=== PATIENT | female | born 1945 | race Caucasian/White ===

== ENCOUNTER 2016-06-17 09:28 | Emergency (ER) | payer OTHER ==
[2016-06-17 09:32] VITALS: BMI 39.4
--- NOTE | 2016-06-17 10:04 | PDOC ---
History of Present Illness <Liseth Christine - Last Filed: 06/17/16 12:44> - General History Source: Patient Exam Limitations: No Limitations - History of Present Illness Travel History: No Initial Comments: 06/17/16 10:09 71y F hx of htn, hypothyroidism presents with abd pain. The pt states she has been having intermittent RUQ pain that radiates to the R flank, worse at night, described as burning and associated with nausea. no associated fever/chills, worsening on exertion, vomiting, chest pain, diaphoresis, diarrhea, dysuria, hematuria. pt describes having occasional pain in the same region in the past, she takes otc meds with resolution but has never had this evaluated by her doctor before. surgical hx: s/p appendectomy, cholecystectomy pmd: kelvin guido <Jasen Salinas - Last Filed: 06/17/16 12:58> - General Chief Complaint: Pain, Acute Stated Complaint: BACK PAIN Time Seen by Provider: 06/17/16 09:36 Past History <Liseth Christine - Last Filed: 06/17/16 12:44> - Past Medical History GI Disorders: Yes (GASTRITIS) HTN: Yes Thyroid Disease: Yes - Surgical History Appendectomy: Yes Cholecystectomy: Yes - Psycho/Social/Smoking Cessation Hx Anxiety: No Suicidal Ideation: No Smoking History: Never smoked Have you smoked in the past 12 months: No Information on smoking cessation initiated: No Hx Alcohol Use: No Drug/Substance Use Hx: No Substance Use Type: None <Jasen Salinas - Last Filed: 06/17/16 12:58> - Past Medical History Allergies/Adverse Reactions: Allergies Allergy/AdvReac Type Severity Reaction Status Date / Time No Known Drug Allergies Allergy Verified 06/17/16 09:31 Home Medications: Ambulatory Orders Amlodipine Besylate [Norvasc -] 2.5 mg PO DAILY 06/17/16 Aspirin [ASA -] 81 mg PO DAILY 06/17/16 Duloxetine HCl 30 mg PO DAILY 06/17/16 Levothyroxine [Synthroid -] 112 mcg PO DAILY 06/17/16 Losartan/Hydrochlorothiazide [Losartan-Hctz 100-25 mg Tab] 1 each PO DAILY 06/17 Pentosan Polysulfate Sodium [Elmiron] 100 mg PO TID 03/24/17 Review of Systems - Review of Systems Able to Perform ROS?: Yes Comments:: 06/17/16 10:13 Constitutional - no reported Fever, Chills, weakness, HEENT: no reported vision changes, sore throat Respiratory: no reported cough, sob, hemoptysis Cardiac: no reported chest pain, palpitations, light headedness, leg swelling Abd/GI: +abd pain, nausea, no reported vomiting, blood per rectum, melena, diarrhea : no reported dysuria, frequency, discharge Musculskelatal - no reported back pain, joint swelling skin - no reported bruising, erythema, rash neurological: no reported headache, numbness, focal weakness, tingling, ataxia, weakness hematologic: no reported anemia, easy bruising, easy bleeding <Jasen Salinas - Last Filed: 06/17/16 12:58> *Physical Exam - Vital Signs Last Vital Signs Temp Pulse Resp BP Pulse Ox 98.2 F 74 17 142/93 96 06/17/16 09:29 06/17/16 09:29 06/17/16 09:29 06/17/16 09:29 06/17/16 09:29 <Liseth Christine - Last Filed: 06/17/16 12:44> - Vital Signs Last Vital Signs Temp Pulse Resp BP Pulse Ox 98.2 F 74 17 142/93 96 06/17/16 09:29 06/17/16 09:29 06/17/16 09:29 06/17/16 09:29 06/17/16 09:29 - Physical Exam Comments: 06/17/16 10:14 GENERAL: The patient is awake, alert, and fully oriented, Nontoxic - in no acute distress. HEAD: Normocephalic, atraumatic. EYES: extraocular movements intact, sclera anicteric, conjunctiva clear. ENT: Normal voice, Moist mucous membranes. NECK: Normal range of motion, supple LUNGS: Breath sounds equal, clear to auscultation bilaterally. No wheezes, no rhonchi, no rales. HEART: Regular rate and rhythm, normal S1 and S2 without murmur, rub or gallop. ABDOMEN: mild R sided abdominal pain, Soft, normoactive bowel sounds. No guarding, no rebound. . No CVA tenderness EXTREMITIES: Normal range of motion, no edema. No clubbing or cyanosis. No cords, erythema, or tenderness. NEUROLOGICAL: No facial assymetry, Normal speech, moving all 4 extermities spontaneously and symmetrically PSYCH: Normal mood, normal affect. SKIN: Warm, Dry, normal turgor, <RitaJasen - Last Filed: 06/17/16 12:58> Heart Score/ECG Review - ECG Impressions Comment:: 06/17/16 11:44 Twelve-lead EKG was performed and reviewed by me. There is normal sinus rhythm with a normal rate. rate of 65 nonspecific t wave abnormality <RitaJasen saravia - Last Filed: 06/17/16 12:58> ED Treatment Course - LABORATORY CBC & Chemistry Diagram: 06/17/16 10:08 06/17/16 10:08 - ADDITIONAL ORDERS Additional order review: Laboratory Results 06/17/16 06/17/16 06/17/16 10:09 10:09 10:08 Sodium 137 Potassium 3.2 L Chloride 98 Carbon Dioxide 27 Anion Gap 12 BUN 10 Creatinine 0.7 Creat Clearance w eGFR > 60 Random Glucose 119 H Calcium 8.7 Total Bilirubin 0.6 AST 22 D ALT 30 D Alkaline Phosphatase 76 Total Protein 7.8 Albumin 3.9 Lipase 133 Urine Color Ltyellow Urine Appearance Clear Urine pH 7.0 Ur Specific [place] 1.013 Urine Protein Negative Urine Glucose (UA) Negative Urine Ketones Negative Urine Blood Negative Urine Nitrite Negative Urine Bilirubin Negative Urine Urobilinogen Negative Ur Leukocyte Esterase 3+ H D Urine RBC 1 Urine WBC 17 Ur Epithelial Cells Rare Urine Bacteria Rare Urine Mucus Rare 06/17/16 10:08 RBC 4.61 MCV 82.7 MCHC 33.3 RDW 14.7 D MPV 8.4 Neutrophils % 59.4 Lymphocytes % 28.8 Monocytes % 7.9 Eosinophils % 2.6 Basophils % 1.3 - RADIOLOGY Radiograph Interpretation: 06/17/16 12:45 EXAM: US Abdomen INTERPRETED BY: Dr. Fung REVIEWED BY: Dr. Salinas IMPRESSION: Hepatomegaly and diffuse fatty infiltration of the liver. - Medications Given in the ED: ED Medications Discontinued Medications Generic Name Dose Route Start Last Admin Trade Name Freq PRN Reason Stop Dose Admin Pantoprazole Sodium 40 mg/ 100 mls @ 200 mls/hr 06/17/16 10:08 06/17/16 10:31 Sodium Chloride IVPB 06/17/16 10:37 200 mls/hr ONCE ONE Administration Ketorolac Tromethamine 15 mg 06/17/16 10:08 06/17/16 10:31 Toradol Injection - IVPUSH 06/17/16 10:09 15 mg ONCE ONE Administration Ondansetron HCl 4 mg 06/17/16 10:08 06/17/16 10:31 Zofran Injection IVPB 06/17/16 10:09 4 mg ONCE ONE Administration <Liseth Christine - Last Filed: 06/17/16 12:44> - LABORATORY CBC & Chemistry Diagram: 06/17/16 10:08 06/17/16 10:08 <Jasen Salinas - Last Filed: 06/17/16 12:58> Medical Decision Making - Medical Decision Making 06/17/16 10:15 71y F hx of htn, hypothyroidism presents with RUQ pain that is burning in nature radiating to the R flank with nausea w/o vomiting, fever/chills, cp, diahoreis on exam pt abd noted for mild R sided abd tenderness consider possible cholelithiasis however pt is s/p cholecystecomy - ?choledocholiithiasis consider kidney stones will give pt some toradol, antiemetic will obtain blood work, ua if UA+hematuria --> joseph obtain ct, if neg will start with US 06/17/16 12:52 pts labs reviewed K low - will replete with k-dur pts UA shows +wbcs, without bacteruria - however the pts symptoms are atypical of uti - without dysurya, frequency and bacteria will defer abx. will havept fu with PMD and gastroenterology. The pts abdomen is nontender on repeat exam and the pt states she is feeling significantly improved. suspect possible gerd/gastritis return precatuions were discussed I discussed the physical exam findings, ancillary test results and final diagnoses with the patient. I answered all of the patient's questions. The patient was satisfied with the care received and felt comfortable with the discharge plan and treatment plan. The patient will call their primary care physician within 24 hours to arrange follow-up and will return to the Emergency Department with any new, persistent or worsening symptoms. <Jasen Salinas - Last Filed: 06/17/16 12:58> *DC/Admit/Observation/Transfer - Attestations Scribe Attestion: 06/17/16 12:46 Documentation prepared by Liseth Christine, acting as certified medical records coder for Jasen Salinas MD. <Liseth Christine - Last Filed: 06/17/16 12:44> - Discharge Dispostion Admit: No <Jasen Salinas - Last Filed: 06/17/16 12:58> Diagnosis at time of Disposition: Abdominal pain Qualifiers: Abdominal location: right upper quadrant Qualified Code(s): R10.11 - Right upper quadrant pain - Discharge Dispostion Disposition: HOME Condition at time of disposition: Improved - Referrals Referrals: Kelvin Guido MD [Staff Physician] - Oziel Bernstein MD [Staff Physician] - - Patient Instructions Printed Discharge Instructions: DI for Abdominal Pain-Adult Additional Instructions: Return to the emergency department immediately with ANY new, persistent or worsening symptoms including worsening abdominal pain, fevers, inability to tolerate oral intake, chest pain, shortness of breath or any other concerns. Stay well hydrated. You MUST call and follow up with your doctor tomorrow. Your emergency department visit is not complete without a followup with your doctor for reevaluation. Please make sure your doctor reviews the results of your emergency evaluation.
[2016-06-17] MEDS ORDERED: PANTOPRAZOLE SODIUM 40 MG in SODIUM CHLORIDE 100 ML IVPB ONE (10:08)
[2016-06-17] MEDS ORDERED: ONDANSETRON 4 MG/2 ML VIAL IVPB ONE (10:08)
[2016-06-17] MEDS ORDERED: KETOROLAC TROMETHAMINE 30 MG/1 ML VIAL IVPUSH ONE (10:08)
[2016-06-17 10:23] LABS: URINE APPEARANCE CLEAR; URINE BILIRUBIN NEGATIVE (NEGATIVE); URINE BLOOD NEGATIVE (NEGATIVE); URINE COLOR LTYELLOW; URINE GLUCOSE (UA) NEGATIVE (NEGATIVE); URINE KETONE NEGATIVE (NEGATIVE); URINE NITRITE NEGATIVE (NEGATIVE); URINE PROTEIN NEGATIVE (NEGATIVE); URINE UROBILINOGEN NEGATIVE E.U./dl (0.2-1.0)
[2016-06-17 10:23] LABS: BASOPHIL 1.3 % (0-2.0); EOSINOPHIL 2.6 % (0-4.5); MCH 27.6 pg (25.7-33.7); MCHC 33.3 g/dl (32.0-36.0); MEAN CELL VOLUME 82.7 fl (80-96); MEAN PLT VOLUME 8.4 fl (7.5-11.1); NEUTROPHILS 59.4 % (42.8-82.8); PLATELET COUNT 219 K/MM3 (134-434); RDW 14.7 % (11.6-15.6)
[2016-06-17] MEDS ORDERED: PANTOPRAZOLE SODIUM 100 ML IVPB ONE (10:25)
[2016-06-17] MEDS ORDERED: KETOROLAC TROMETHAMINE 15 MG/ML VIAL ONE (10:25)
[2016-06-17] MEDS ORDERED: ONDANSETRON 4 MG/2 ML VIAL ONE (10:25)
[2016-06-17 10:33] LABS: URINE LEUK ESTERASE 3+ (NEGATIVE)
[2016-06-17 10:35] LABS: URINE BACTERIA RARE /hpf (NONE SEEN); URINE MUCUS RARE; URINE RBC 1 /hpf (0-3); URINE WBC 17 /hpf (3-5)
[2016-06-17 11:21] LABS: ALBUMIN 3.9 g/dl (3.4-5.0); ANION GAP 12 (8-16); CALCIUM 8.7 mg/dL (8.5-10.1); CO2 27 mmol/L (21-32); GLUCOSE,RANDOM 119 mg/dL (74-106); SGOT/AST 22 U/L (15-37); SGPT/ALT 30 U/L (12-78)
[2016-06-17 11:24] LABS: ALK PHOS 76 U/L (45-117); BILIRUBIN,TOTAL 0.6 mg/dL (0.2-1.0); CREATININE 0.7 mg/dL (0.55-1.02); TOT PROT 7.8 g/dl (6.4-8.2)
[2016-06-17] MEDS ORDERED: POTASSIUM CHLORIDE TABS 20 MEQ TABLET.ER (FP) PO ONE ×2 (12:53→13:01)
[2016-06-17 13:07] VITALS: BP 135/80; PULSE 87; TEMP 98.7
--- NOTE | 2016-06-18 18:33 | EKG ---
Test Reason : Blood Pressure : / mmHG Vent. Rate : 065 BPM Atrial Rate : 065 BPM P-R Int : 142 ms QRS Dur : 088 ms QT Int : 420 ms P-R-T Axes : 026 003 007 degrees QTc Int : 436 ms NORMAL SINUS RHYTHM NONSPECIFIC T WAVE ABNORMALITY ABNORMAL ECG NO PREVIOUS ECGS AVAILABLE Confirmed by ARIES MADSEN, TORY ([id number]) on 06/18/2016 6:32:54 PM Referred By: Confirmed By:TORY CHRIS MD
== END 2016-06-17 13:07 | disposition home or self-care (01) ==
LOC: JER 09:28
PROC: 3E0333Z Introduction of Anti-inflammatory into Peripheral Vein, Percutaneous Approach (ICD-10-PCS; principal; 2016-06-17)
PROC: 3E033GC Introduction of Other Therapeutic Substance into Peripheral Vein, Percutaneous Approach (ICD-10-PCS; 2016-06-17)
DX: R10.11 Right upper quadrant pain (principal)
CPT/HCPCS: 36415; 76705-TC; 80053; 81003; 81015; 83690; 85025; 93005; 93010; 96365; 96375; 99283-25

== ENCOUNTER 2020-10-05 04:28 | Day surgery (SDC) | payer OTHER ==
[2020-10-05 08:48] VITALS: BMI 32.3
[2020-10-05] MEDS ORDERED: PROPOFOL 20 ML ONE (10:34)
[2020-10-05 11:12] VITALS: PULSE 62
[2020-10-05 13:44] VITALS: TEMP 97.5
[2020-10-05 13:47] VITALS: BP 129/79
== END 2020-10-05 12:35 | disposition home or self-care (01) ==
LOC: JASU-SURG 04:28
PROVIDERS: ATTEND Urology
PROC: 0TF3XZZ Fragmentation in Right Kidney Pelvis, External Approach (ICD-10-PCS; principal; 2020-10-05 08:00)
DX: N20.0 Calculus of kidney (principal)

== ENCOUNTER 2021-01-16 12:45 | Observation (INO) | payer OTHER ==
[2021-01-16] MEDS ORDERED: METOCLOPRAMIDE HCL INJECTION 10 MG/2 ML VIAL IVPUSH ONE (14:21)
[2021-01-16] MEDS ORDERED: SODIUM CHLORIDE 0.9% 500 ML INFUS.BAG IV ONE (14:21)
[2021-01-16] MEDS ORDERED: ACETAMINOPHEN 1000 MG/100 ML VIAL IVPB ONE (14:22)
[2021-01-16] MEDS ORDERED: ACETAMINOPHEN INJECTION 100 ML IVPB ONE (14:54)
[2021-01-16] MEDS ORDERED: METOCLOPRAMIDE HCL INJECTION 10 MG/2 ML VIAL ONE (14:54)
[2021-01-16 15:33] LABS: BASO % 1.6 % (0-2.0); EOS % 1.2 % (0-4.5); HEMATOCRIT 34.8 % (32.4-45.2); HEMOGLOBIN 11.8 GM/dL (10.7-15.3); LYMPH % 44.1 % (8-40); MCH 29.2 pg (25.7-33.7); MCHC 33.9 g/dl (32.0-36.0); MEAN CELL VOLUME 86.3 fl (80-96); MEAN PLT VOLUME 8.3 fl (7.5-11.1); MONO % 8.2 % (3.8-10.2); NEUT % 44.9 % (42.8-82.8); PLATELET COUNT 213 10^3/uL (134-434); RBC 4.03 M/mm3 (3.60-5.2); RDW 13.1 % (11.6-15.6); WHITE BLOOD COUNT 5.3 K/mm3 (4.0-10.0)
[2021-01-16 15:42] LABS: CHLORIDE 102 mmol/L (98-107); SODIUM 137 mmol/L (136-145)
[2021-01-16 15:44] LABS: ALBUMIN 3.6 g/dl (3.4-5.0); ANION GAP 4 MMOL/L (8-16); BLOOD UREA NITROGEN 12.6 mg/dL (7-18); CALCIUM 8.4 mg/dL (8.5-10.1); CO2 30 mmol/L (21-32); GLUCOSE,RANDOM 97 mg/dL (74-106)
[2021-01-16 15:47] LABS: CREATININE 0.7 mg/dL (0.55-1.3); SGOT/AST 17 U/L (15-37); SGPT/ALT 17 U/L (13-61)
[2021-01-16 15:49] LABS: BILIRUBIN,TOTAL 0.3 mg/dL (0.2-1); TOT PROT 7.5 g/dl (6.4-8.2)
[2021-01-16 15:50] LABS: ALK PHOS 66 U/L (45-117)
[2021-01-16 15:55] LABS: INR 1.05 (0.83-1.09); PROTHROMBIN TIME (PATIENT) 11.8 SEC (9.7-13.0)
[2021-01-16 15:58] LABS: ACTIVATED PTT 29.6 SECONDS (25.2-36.5)
[2021-01-16] MEDS ORDERED: ACETAMINOPHEN 325 MG TABLET (FP) PO PRN (22:38)
[2021-01-16] MEDS ORDERED: ONDANSETRON 4 MG/2 ML VIAL IVPUSH PRN (22:38)
[2021-01-17] MEDS ORDERED: PATIENT'S OWN MEDICATION (NON-FORMULARY) (Pentosan Polysulfate Sodium [Elmiron] 100 MG Cap PO SCH (06:00)
[2021-01-17 06:07] LABS: BASO % 1.4 % (0-2.0); EOS % 1.7 % (0-4.5); HEMATOCRIT 34.3 % (32.4-45.2); HEMOGLOBIN 11.6 GM/dL (10.7-15.3); LYMPH % 46.9 % (8-40); MCH 29.3 pg (25.7-33.7); MCHC 33.8 g/dl (32.0-36.0); MEAN CELL VOLUME 86.8 fl (80-96); MONO % 9.9 % (3.8-10.2); NEUT % 40.1 % (42.8-82.8); PLATELET COUNT 205 10^3/uL (134-434); RBC 3.95 M/mm3 (3.60-5.2); WHITE BLOOD COUNT 4.1 K/mm3 (4.0-10.0)
[2021-01-17 06:49] LABS: ALBUMIN 3.3 g/dl (3.4-5.0); BILIRUBIN,TOTAL 0.5 mg/dL (0.2-1); BLOOD UREA NITROGEN 14.4 mg/dL (7-18); CALCIUM 8.6 mg/dL (8.5-10.1); CREATININE 0.7 mg/dL (0.55-1.3)
[2021-01-17] MEDS: LEVOTHYROXINE NA 112 MCG TABLET (FP) PO SCH (07:10)
[2021-01-17] MEDS: ASPIRIN 81 MG CHEWABLE TABLETS PO SCH (10:05)
[2021-01-17] MEDS: ENOXAPARIN NA (PORCINE) 40 MG/0.4 ML DISP.SYRIN SQ SCH (10:05)
[2021-01-17] MEDS: amLODIPine BESYLATE 2.5 MG TABLET (FP) PO SCH (10:05)
[2021-01-17] MEDS: DULoxetine HCL 30 MG CAPSULE.DR PO SCH (10:05)
[2021-01-17] MEDS ORDERED: ASPIRIN 81 MG CHEWABLE TABLETS ONE (10:10)
[2021-01-17] MEDS: LOSARTAN 50MG/HCTZ 12.5MG 1 TAB PO SCH (10:10)
[2021-01-17] MEDS ORDERED: DULoxetine HCL 30 MG CAPSULE.DR PO ONE (10:11)
[2021-01-17] MEDS ORDERED: LOSARTAN POTASSIUM 50 MG TABLET ONE (10:12)
[2021-01-17] MEDS ORDERED: amLODIPine BESYLATE 2.5 MG TABLET (FP) ONE (10:13)
[2021-01-17] MEDS ORDERED: ENOXAPARIN NA (PORCINE) 40 MG/0.4 ML DISP.SYRIN SQ ONE (10:13)
[2021-01-17 13:07] VITALS: BMI 30.3
[2021-01-17] MEDS: PANTOPRAZOLE 40 MG TABLET PO SCH (17:42)
[2021-01-17] MEDS: CREON PO SCH (17:43)
[2021-01-17] MEDS ORDERED: PT OWN MED DRAWER 7, Y5N ONE (17:46)
[2021-01-18] MEDS: LEVOTHYROXINE NA 112 MCG TABLET (FP) PO SCH (06:27)
[2021-01-18] MEDS: CREON PO SCH ×3 (06:28→16:43)
[2021-01-18 07:19] LABS: BASO % 1.1 % (0-2.0); EOS % 2.2 % (0-4.5); HEMATOCRIT 35.4 % (32.4-45.2); HEMOGLOBIN 11.9 GM/dL (10.7-15.3); LYMPH % 48.8 % (8-40); MCH 29.4 pg (25.7-33.7); MCHC 33.7 g/dl (32.0-36.0); MEAN PLT VOLUME 8.1 fl (7.5-11.1); MONO % 10.9 % (3.8-10.2); PLATELET COUNT 215 10^3/uL (134-434); RBC 4.07 M/mm3 (3.60-5.2); WHITE BLOOD COUNT 4.2 K/mm3 (4.0-10.0)
[2021-01-18 07:22] LABS: BLOOD UREA NITROGEN 13.9 mg/dL (7-18); CALCIUM 9.1 mg/dL (8.5-10.1)
[2021-01-18 07:23] LABS: ALBUMIN 3.2 g/dl (3.4-5.0)
[2021-01-18 07:26] LABS: CREATININE 0.7 mg/dL (0.55-1.3)
[2021-01-18 07:27] LABS: BILIRUBIN,TOTAL 0.6 mg/dL (0.2-1); TOT PROT 7.2 g/dl (6.4-8.2)
[2021-01-18] MEDS: LOSARTAN 50MG/HCTZ 12.5MG 1 TAB PO SCH (10:03)
[2021-01-18] MEDS: PANTOPRAZOLE 40 MG TABLET PO SCH (10:03)
[2021-01-18] MEDS: ENOXAPARIN NA (PORCINE) 40 MG/0.4 ML DISP.SYRIN SQ SCH (10:03)
[2021-01-18] MEDS: amLODIPine BESYLATE 2.5 MG TABLET (FP) PO SCH (10:03)
[2021-01-18] MEDS: DULoxetine HCL 30 MG CAPSULE.DR PO SCH (10:03)
[2021-01-18] MEDS: ASPIRIN 81 MG CHEWABLE TABLETS PO SCH (10:03)
[2021-01-18] MEDS ORDERED: POTASSIUM CHLORIDE TABS 20 MEQ TABLET.ER (FP) PO ONE (17:14)
[2021-01-19] MEDS: LEVOTHYROXINE NA 112 MCG TABLET (FP) PO SCH (06:31)
[2021-01-19] MEDS: CREON PO SCH ×3 (06:31→17:59)
[2021-01-19 07:24] LABS: CALCIUM 8.8 mg/dL (8.5-10.1)
[2021-01-19 07:25] LABS: ALBUMIN 3.4 g/dl (3.4-5.0); BLOOD UREA NITROGEN 11.6 mg/dL (7-18)
[2021-01-19 07:28] LABS: CREATININE 0.6 mg/dL (0.55-1.3)
[2021-01-19 07:29] LABS: BILIRUBIN,TOTAL 0.6 mg/dL (0.2-1); TOT PROT 7.2 g/dl (6.4-8.2)
[2021-01-19] MEDS: PANTOPRAZOLE 40 MG TABLET PO SCH (09:32)
[2021-01-19] MEDS: DULoxetine HCL 30 MG CAPSULE.DR PO SCH (09:32)
[2021-01-19] MEDS: ASPIRIN 81 MG CHEWABLE TABLETS PO SCH (09:32)
[2021-01-19] MEDS: LOSARTAN 50MG/HCTZ 12.5MG 1 TAB PO SCH (09:32)
[2021-01-19] MEDS: amLODIPine BESYLATE 2.5 MG TABLET (FP) PO SCH (09:32)
[2021-01-19] MEDS: ENOXAPARIN NA (PORCINE) 40 MG/0.4 ML DISP.SYRIN SQ SCH (09:33)
[2021-01-19 15:32] VITALS: BP 137/74; PULSE 80; TEMP 97.8
== END 2021-01-19 20:22 | disposition home or self-care (01) ==
LOC: JER 12:45 → UNDOADMOB 16:51 → INTOOBSV 16:51 → JERBED 16:51 → J4W 01-17 12:02 → JERBED 01-17 12:02 → J4W 01-18 09:52
PROVIDERS: ADMIT Internal Medicine; ATTEND Internal Medicine
PROC: 3E033NZ Introduction of Analgesics, Hypnotics, Sedatives into Peripheral Vein, Percutaneous Approach (ICD-10-PCS; principal; 2021-01-18)
PROC: 3E033GC Introduction of Other Therapeutic Substance into Peripheral Vein, Percutaneous Approach (ICD-10-PCS; 2021-01-18)
DX: H53.2 Diplopia (principal); G43.109 Migraine with aura, not intractable, without status migrainosus; I10 Essential (primary) hypertension; E03.9 Hypothyroidism, unspecified; H40.9 Unspecified glaucoma; J45.909 Unspecified asthma, uncomplicated; G58.8 Other specified mononeuropathies
CPT/HCPCS: 36415; 70450-TC; 70551-TC; 72125-TC; 80053; 82550; 83036; 84443; 84484; 85025; 85610; 85651; 85730; 86140; 86850; 86900; 86901; 93005; 93010; 93306-TC; 93880-TC; 96374; 96375; 97116-GP; 97161-GP; 99285-25; C9803; G0378; J0131; U0003; U0005